=== PATIENT | female | born 1970 | race Caucasian/White ===

== ENCOUNTER 2024-06-23 00:23 | Inpatient (IN) | payer OTHER ==
[2024-06-23] VITALS (11 sets, daily range): BP systolic 105–117; BP diastolic 50–78; PULSE 52–77; RESP 17–20; TEMP 97.9–99.1; O2SAT 98–100
[~2024-06-23] VITALS: Ht 157.5 cm; Wt 61.2 kg
[2024-06-23] MEDS: KETOROLAC TROMETHAMINE 30 MG/ML VIAL IV STA (00:46)
[2024-06-23] MEDS: ONDANSETRON HCL INJ 2MG/ML 2ML 2 MG/ML VIAL IV STA (00:46)
[2024-06-23] MEDS: SODIUM CHLORIDE 0.9% 1000ML 1,000 ML IV STA (00:46)
[2024-06-23] MEDS: ONDANSETRON HCL 4 MG ORAL DISINTEGRATING TAB PO STA (00:46)
[2024-06-23 00:57] LABS: BASOPHILS # (AUTO) 0.1 (0.0-0.1); BASOPHILS % 0.3 % (0.0-1.0); EOSINOPHILS % 0.2 % (0.0-6.0); HEMOGLOBIN 14.4 g/dL (12.0-16.0); MEAN CORPUSCULAR HEMOGLOBIN 30.6 pg (28-32); MEAN CORPUSCULAR HGB CONC 33.5 g/dL (31-35); MEAN CORPUSCULAR VOLUME 91.3 fL (81-99); MONOCYTES # (AUTO) 0.8 (0.2-0.8); MONOCYTES % 4.6 % (4.4-11.3); NEUTROPHILS # (AUTO) 11.6 (2.1-6.9); NEUTROPHILS % 70.6 % (38.7-80.0); PLATELET COUNT 216 x10e3/uL (140-360); RED BLOOD COUNT 4.71 x10e6/uL (3.6-5.1); RED CELL DISTRIBUTION WIDTH 12.9 % (11.7-14.4); WHITE BLOOD COUNT 16.46 x10e3/uL (4.8-10.8)
[2024-06-23 01:06] LABS: BILIRUBIN,URINE 1+ (NEGATIVE); CLARITY,URINE CLOUDY (CLEAR); COLOR,URINE YELLOW (YELLOW); GLUCOSE, URINE NEGATIVE (NEGATIVE); KETONES,URINE TRACE (NEGATIVE); LEUKOCYTE ESTERASE ,URINE 2+ (NEGATIVE); NITRITE,URINE NEGATIVE (NEGATIVE); PH,URINE 6 (5 - 7); PROTEIN,URINE DIPSTICK >=300 (NEGATIVE); URINE UROBILINOGEN 0.2 mg/dL (0.2 - 1)
[2024-06-23 01:08] LABS: PREGNANCY TEST, URINE NEGATIVE (NEGATIVE)
[2024-06-23 01:15] LABS: ALBUMIN 4.4 g/dL (3.5-5.0); ALBUMIN/GLOBULIN RATIO 1.3 (0.8-2.0); ANION GAP 17.6 mmol/L (8-16); BILIRUBIN,TOTAL 0.9 mg/dL (0.2-1.2); CALCIUM 9.8 mg/dL (8.4-10.2); CREATININE, SERUM 0.94 mg/dL (0.57-1.11); POTASSIUM 3.6 mmol/L (3.5-5.1); TOTAL PROTEIN 7.7 g/dL (6.5-8.1)
[2024-06-23 01:16] LABS: BACTERIA,URINE MANY /HPF; EPITHELIAL CELLS,URINE MODERATE /LPF; RBC,URINE >50 /HPF (0-5); WBC,URINE (MAN) >50 /HPF (0-5)
[2024-06-23] MEDS: DIAZEPAM INJ 5 MG/ML 2 ML IV STA (01:58)
[2024-06-23] MEDS: SODIUM CHLORIDE 0.9% 1000ML 1,000 ML IV SCH (03:34)
[2024-06-23] MEDS: Morphine 4mg INJECTION 4 MG/ML INJ IV PRN (03:35)
[2024-06-23] MEDS: ONDANSETRON HCL INJ 2MG/ML 2ML 2 MG/ML VIAL IV PRN (03:36)
[2024-06-23] MEDS ORDERED: FLUOXETINE HCL40 MG PO (05:59)
[2024-06-23] MEDS ORDERED: HYDROXYZINE HCL25 MG PO (05:59)
[2024-06-23] MEDS ORDERED: ROSUVASTATIN CA20 MG PO (06:06)
[2024-06-23] MEDS ORDERED: HYDROXYZINE HCL 25 MG TAB PO PRN (18:15)
[2024-06-23] MEDS: CRESTOR 10MG PO SCH (20:22)
[2024-06-24] VITALS (8 sets, daily range): BP systolic 106–119; BP diastolic 45–68; PULSE 55–64; RESP 18–19; TEMP 98.1–99.6; O2SAT 100
[2024-06-24 04:56] LABS: BASOPHILS % 0.2 % (0.0-1.0); EOSINOPHILS # (AUTO) 0.1 (0.0-0.4); EOSINOPHILS % 1.3 % (0.0-6.0); HEMATOCRIT 34.1 % (34.2-44.1); HEMOGLOBIN 11.5 g/dL (12.0-16.0); LYMPHOCYTES # (AUTO) 2.8 (1.0-3.2); LYMPHOCYTES % 33.7 % (18.0-39.1); MEAN CORPUSCULAR HEMOGLOBIN 30.7 pg (28-32); MEAN CORPUSCULAR HGB CONC 33.7 g/dL (31-35); MEAN CORPUSCULAR VOLUME 90.9 fL (81-99); MONOCYTES # (AUTO) 0.5 (0.2-0.8); MONOCYTES % 6.5 % (4.4-11.3); NEUTROPHILS # (AUTO) 4.8 (2.1-6.9); NEUTROPHILS % 57.9 % (38.7-80.0); PLATELET COUNT 167 x10e3/uL (140-360); RED BLOOD COUNT 3.75 x10e6/uL (3.6-5.1); WHITE BLOOD COUNT 8.25 x10e3/uL (4.8-10.8)
[2024-06-24 05:24] LABS: ALBUMIN 3.2 g/dL (3.5-5.0); ALBUMIN/GLOBULIN RATIO 1.1 (0.8-2.0); ANION GAP 13.8 mmol/L (8-16); BILIRUBIN,TOTAL 0.4 mg/dL (0.2-1.2); CALCIUM 8.7 mg/dL (8.4-10.2); CREATININE, SERUM 0.78 mg/dL (0.57-1.11); POTASSIUM 3.8 mmol/L (3.5-5.1)
[2024-06-24] MEDS: FLUOXETINE HCL 20 MG CAP PO SCH (08:52)
[2024-06-24] MEDS: TRAMADOL HCL 50 MG TAB PO PRN (12:31)
[2024-06-25 04:24] VITALS: BP 128/66; PULSE 54; RESP 18; TEMP 98.6; O2SAT 99
[2024-06-25] MEDS ORDERED: PROPOFOL IV EMULSION 10 MG/ML 20 ML VIAL ONE (08:02)
[2024-06-25] MEDS ORDERED: FENTANYL CITRATE/PF 100MCG/2 ML INJ ONE (08:02)
[2024-06-25] MEDS ORDERED: LIDOCAINE HCL 2% LOCAL INJ 5 ML SDV VIAL INJ ONE (08:02)
[2024-06-25] MEDS ORDERED: ONDANSETRON HCL INJ 2MG/ML 2ML 2 MG/ML VIAL ONE (08:16)
[2024-06-25] MEDS ORDERED: DEXAMETHASONE SOD PHOS INJ 4 MG/ML SDV ONE (08:16)
[2024-06-25 08:21] VITALS: BP 121/74; PULSE 51; RESP 18; TEMP 98.9; O2SAT 99
[2024-06-25 08:23] VITALS: BP 121/74; PULSE 51; RESP 18; TEMP 98.9; O2SAT 99
[2024-06-25] MEDS ORDERED: EPHEDRINE SULFATE INJ 50 MG/ML VIAL ONE (08:30)
[2024-06-25] MEDS ORDERED: FAMOTIDINE 20 MG/2 ML VIAL IV ONE (08:30)
[2024-06-25] MEDS ORDERED: PHENAZOPYRIDINE HCL 100 MG TAB PO PRN (09:00)
[2024-06-25 09:37] VITALS: BP 129/76; PULSE 52; RESP 18; TEMP 98.6; O2SAT 100
[2024-06-25 12:00] VITALS: BP 118/75; PULSE 52; RESP 18; TEMP 98.2; O2SAT 100
== END 2024-06-25 14:44 | disposition home or self-care (01) | DRG 853 ==
LOC: ER 00:37 → ERHOLD 01:48 → MED/SURG 03:16
PROVIDERS: ADMIT Internal Medicine; ATTEND Internal Medicine
PROC: 3E03329 Introduction of Other Anti-infective into Peripheral Vein, Percutaneous Approach (ICD-10-PCS; 2024-06-23)
PROC: BT1D1ZZ Fluoroscopy of Right Kidney, Ureter and Bladder using Low Osmolar Contrast (ICD-10-PCS; 2024-06-25)
PROC: 0TP98DZ Removal of Intraluminal Device from Ureter, Via Natural or Artificial Opening Endoscopic (ICD-10-PCS; principal; 2024-06-25 08:10)
PROC: 0T768DZ Dilation of Right Ureter with Intraluminal Device, Via Natural or Artificial Opening Endoscopic (ICD-10-PCS; 2024-06-25 08:10)
DX: A41.81 Sepsis due to Enterococcus (principal); J18.1 Lobar pneumonia, unspecified organism; N13.6 Pyonephrosis; Z46.6 Encounter for fitting and adjustment of urinary device; N81.2 Incomplete uterovaginal prolapse; R31.29 Other microscopic hematuria; N36.41 Hypermobility of urethra; N95.2 Postmenopausal atrophic vaginitis; Z96.0 Presence of urogenital implants; I10 Essential (primary) hypertension; E78.5 Hyperlipidemia, unspecified; F41.8 Other specified anxiety disorders; G47.00 Insomnia, unspecified; F17.200 Nicotine dependence, unspecified, uncomplicated; Z91.199 Patient's noncompliance with other medical treatment and regimen due to unspecified reason; Z79.899 Other long term (current) drug therapy
CPT/HCPCS: 36415; 74176; 74420; 80053; 81001; 81025; 83690; 85025; 87086; 87186; 99284; C1758; C1769; J1100; J1885; J2003; J2270; J2405; J2543; J7030

== ENCOUNTER 2024-12-22 08:05 | Emergency (ER) | payer OTHER ==
[~2024-12-22] VITALS: Ht 157.5 cm; Wt 59.0 kg
[~2024-12-22 08:05] MED LIST: FLUOXETINE HCL40 MG PO; HYDROXYZINE HCL25 MG PO; ROSUVASTATIN CA20 MG PO
[2024-12-22 08:15] VITALS: PULSE 70; RESP 18; TEMP 98.2; O2SAT 100
[2024-12-22] MEDS ORDERED: AMOX TR-K CLV1 EAC2 PO (08:37)
[2024-12-22] MEDS: IBUPROFEN 400 MG TAB PO STA (08:44)
[2024-12-22] MEDS: TETANUS/DIPHTHERIA TOX ADULT 0.5 ML SYR IM ONE (08:46)
== END 2024-12-22 09:25 | disposition home or self-care (01) ==
LOC: ER 08:10
DX: S60.471A Other superficial bite of left index finger, initial encounter (principal); S61.432A Puncture wound without foreign body of left hand, initial encounter; W54.0XXA Bitten by dog, initial encounter; Y92.89 Other specified places as the place of occurrence of the external cause; F17.210 Nicotine dependence, cigarettes, uncomplicated
CPT/HCPCS: 90471; 90714; 99283